=== PATIENT | male | born 1970 | race Caucasian/White ===

== ENCOUNTER → 2016-11-25 | Outpatient (CLI) | payer OTHER ==
[~2016-11-25] VITALS: Ht 177.8 cm; Wt 100.0 kg
[~2016-11-25] MED LIST: ABX; AMOXICILLIN/CLA1 TA1 PO; NORCO 325 MG-51 TAB PO
[2016-11-25 12:32] VITALS: BP 121/86; PULSE 53
[2016-11-25 13:45] VITALS: BP 124/93; PULSE 54
== END ==
LOC: COL.RAD 11:27
DX: M54.2 Cervicalgia (principal); M54.12 Radiculopathy, cervical region; G89.29 Other chronic pain
CPT/HCPCS: J1100